=== PATIENT | female | born 1990 | race Caucasian/White ===

== ENCOUNTER 2018-12-05 21:12 | Emergency (ER) | payer OTHER ==
[~2018-12-05] VITALS: Ht 162.6 cm; Wt 96.2 kg
[~2018-12-05 21:12] MED LIST: ESCI10TA PO; LATA2.5D3 EACHEYE; LEVO75TA5 PO; LOVA20TA2 PO; METO50TA82 PO; NORE-74 PO; RANI75TA12 PO
[2018-12-05] MEDS ORDERED: LIDOCAINE-MPF 1%, 5ML ONE ×2 (21:23→22:01)
--- NOTE | 2018-12-05 21:27 | NUR ---
PT WALKED BACK TO ROOM WITHOUT DIFFICULTY. ER GUEST ATTENDANT AT BS IMMEDIATELY. PT DENIES MUCH PAIN, BUT TEARFUL D/T SITUATION. WET GAUZE APPLIED TO L EARLOBE, BLEEDING CONTROLLED.
--- NOTE | 2018-12-05 21:38 | NUR ---
ERP WAS IN TO ASSESS PT. BRICK LOADER AT BS NOW TO NUMB L EAR WITH LIDOCAINE.
--- NOTE | 2018-12-05 21:49 | NUR ---
JACOB IBANEZ AT NOW FOR IRRIGATION OF L EAR WOUND.
--- NOTE | 2018-12-05 22:07 | NUR ---
AMADOU LAZCANO AT NOW TO SUTURE L EAR.
[2018-12-05] MEDS ORDERED: HYDROcodone/APAP 5/325 TABLET PO ONE (22:30)
[2018-12-05] MEDS ORDERED: HYDROcodone/APAP 5/325 TABLET ONE (22:30)
--- NOTE | 2018-12-05 22:36 | NUR ---
PT MEDICATED WITH NORCO FOR PAIN. AT BS. Addendum: 12/05/18 at 2249 by LIBANON DRESSING APPLIED TO L EAR BY ASSISTANT SHIFT SUPERVISOR (ABX OINTMENT, ADAPTIC, GAUZE, TAPE).
[2018-12-05 22:48] VITALS: BP 142/88
--- NOTE | 2018-12-05 22:48 | NUR ---
D/C INSTRUCTIONS, MEDS & F/U APPT RV'WD WITH PT, SHE VERBALIZES UNDERSTANDING. RX GIVEN X1. PT AMBULATED OUT OF ED WITH SPOUSE WITHOUT DIFFICULTY.
[2018-12-05] MEDS ORDERED: LIDOCAINE-MPF 1%, 5ML INFIL ONE (23:00)
== END 2018-12-05 22:51 | disposition home or self-care (01) ==
LOC: ED 22:15
DX: S01.312A Laceration without foreign body of left ear, initial encounter (principal); W54.0XXA Bitten by dog, initial encounter; Y93.89 Activity, other specified; Y92.89 Other specified places as the place of occurrence of the external cause; Y99.8 Other external cause status
CPT/HCPCS: 12051; 99284